=== PATIENT | male | born 1985 | race Caucasian/White ===

== ENCOUNTER 2019-02-12 11:44 | Emergency (ER) | payer SELFPAY ==
[~2019-02-12] VITALS: Ht 167.6 cm; Wt 65.8 kg
[2019-02-12 12:13] VITALS: BP 134/65
[2019-02-12 12:41] LABS: BILIRUBIN,URINE NEGATIVE (NEG); CLARITY,URINE CLEAR; COLOR,URINE YELLOW; NITRITE,URINE NEGATIVE (NEG); PH,URINE 6.5; PROTEIN,URINE NEGATIVE (NEG-TRACE)
[2019-02-12 12:48] LABS: BARBITURATES NEG (NEG); BENZODIAZEPINES NEG (NEG); CANNABINOIDS POS (NEG); COCAINE NEG (NEG); METHADONE NEG (NEG); OPIATES NEG (NEG); PHENCYCLIDINE NEG (NEG)
[2019-02-12 12:51] LABS: BACTERIA,URINE 0 /HPF (0-FEW)
[2019-02-12 12:54] LABS: AMPHETAMINE/METHAMPHETAMINE NEG (NEG)
--- NOTE | 2019-02-12 13:32 | PHYS DOC ---
Past Medical History Past Medical History: No Pertinent History Past Surgical History: No Surgical History Alcohol Use: None Drug Use: None Adult General Chief Complaint Chief Complaint: BACK PAIN - NO INJURY HPI HPI Patient is a 33 year old male who presents with left and right lower back pain with radiation down the back of the left leg that has been going on and off the last 2 months but states is getting sharper is hard for him to work. 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 He states the pain is worse when he is up and moving but he does have pain they rates 9 out of 10 just sitting in the chair. Denies loss of bowel or bladder. Denies taking any medications and denies injury. Review of Systems Review of Systems Musculoskeletal: Low back pain or joint pain [] All other systems were reviewed and found to be within normal limits, except as documented in this note. Allergies Allergies Allergies Coded Allergies Type Severity Reaction Last Updated Verified No Known Drug Allergies 02/12/19 No Physical Exam Physical Exam Constitutional: Well developed, well nourished, no acute distress, non-toxic appearance. [] HENT: Normocephalic, atraumatic, bilateral external ears normal, oropharynx moist, no oral exudates, nose normal. [] Eyes: PERRLA, EOMI, conjunctiva normal, no discharge. [] Neck: Normal range of motion, no tenderness, supple, no stridor. [] Cardiovascular:Heart rate regular rhythm, no murmur [] Lungs & Thorax: Bilateral breath sounds clear to auscultation [] Abdomen: Bowel sounds normal, soft, no tenderness, no masses, no pulsatile masses. [] Skin: Warm, dry, no erythema, no rash. [] Back: Left paraspinal tenderness, no CVA tenderness. [] Extremities: No tenderness, no cyanosis, no clubbing, ROM intact, no edema. [] Neurologic: Alert and oriented X 3, normal motor function, normal sensory function, no focal deficits noted. [] Psychologic: Affect normal, judgement normal, mood normal. [] Current Patient Data Vital Signs Vital Signs Date Time Temp Pulse Resp B/P (MAP) Pulse Ox O2 Delivery O2 Flow Rate FiO2 02/12/19 12:13 98.2 99 18 134/65 (88) 99 Room Air 98.2 Lab Values Laboratory Tests Test 02/12/19 12:35 Urine Collection Type Unknown Urine Color Yellow Urine Clarity Clear Urine pH 6.5 Urine Specific [place] 1.015 Urine Protein Negative mg/dL (NEG-TRACE) Urine Glucose (UA) Negative mg/dL (NEG) Urine Ketones (Stick) Negative mg/dL (NEG) Urine Blood Negative (NEG) Urine Nitrite Negative (NEG) Urine Bilirubin Negative (NEG) Urine Urobilinogen Dipstick 1.0 mg/dL (0.2 mg/dL) Urine Leukocyte Esterase Negative (NEG) Urine RBC 3-5 /HPF (0-2) Urine WBC 1-4 /HPF (0-4) Urine Bacteria 0 /HPF (0-FEW) Urine Mucus Marked /LPF Urine Opiates Screen Neg (NEG) Urine Methadone Screen Neg (NEG) Urine Barbiturates Neg (NEG) Urine Phencyclidine Screen Neg (NEG) Urine Amphetamine/Methamphetamine Neg (NEG) Urine Benzodiazepines Screen Neg (NEG) Urine Cocaine Screen Neg (NEG) Urine Cannabinoids Screen Pos (NEG) Urine Ethyl Alcohol Neg (NEG) EKG EKG [] Radiology/Procedures Radiology/Procedures [] Impressions: [facility] [address] [place] [address] IMAGING REPORT Signed PATIENT: JULIO CHEN ACCOUNT: [id number] : 1985 LOCATION: ER AGE: 33 SEX: M EXAM STATUS: REG ER ORD. PHYSICIAN: JANET KNIGHT APRN REASON: pain low back PROCEDURE: LUMBAR SPINE 2-3V Study: LUMBAR SPINE 2-3V Indication: Low back pain. Comparison: None. Findings: The last well-formed disc space is designated L5-S1. This would make the T12 vertebral body nonrib-bearing. Lumbar lordosis is maintained. No suspicious vertebral body height loss or disc space narrowing. Probable relatively mild lower lumbar facet degeneration. The adequately evaluated posterior elements are grossly intact. Partially visualized pelvic osseous structures are within normal limits. Impression: No acute fracture or advanced degenerative change. Electronically signed by: OWEN KEN MD (02/12/2019 1:33 PM) [facility] DICTATED and SIGNED BY: OWEN KEN MD DATE: 02/12/19 1333 Course & Med Decision Making Course & Med Decision Making Bruising or swelling to his back and a deformity to the spine. No spinal focal tenderness. Patient does have left-sided paraspinal tenderness with palpation. Patient moves all extremities without complications. Equal strength in liquor commissioner in all extremities. Denies any numbness or tingling or weakness of extremities. Alert and oriented. Ambulatory with a steady gait the patient walks slowly. Skin pink warm and dry. Denies dysuria or abdominal pain, nausea, vomiting, fevers, chest pain, shortness of air headache, dizziness, visual changes. Extremity swelling. X-ray shows no acute findings. This is likely musculoskeletal with sciatica. He will need to follow-up the primary care provider. Dragon Disclaimer Dragon Disclaimer This electronic medical record was generated, in whole or in part, using a voice recognition dictation system. Departure Departure Impression: Primary Impression: Low back pain Disposition: HOME, SELF-CARE Condition: STABLE Referrals: NO PCP (PCP) Patient Instructions: Back Pain, Adult Additional Instructions: Follow up with primary care provider. Drink plenty of fluids. Take medications as prescribed. Scripts Methylprednisolone (MEDROL) 4 Mg Tab.ds.pk 1 PKG PO UD, #1 PKG Prov: JANET KNIGHT APR02/12/19 Hydrocodone/Apap 5-325 (NORCO 5-325 TABLET) 1 Each Tablet 1 TAB PO PRN Q6HRS PRN for PAIN, #8 TAB 0 Refills Prov: JANET KNIGHT APRN 02/12/19 Ibuprofen (IBUPROFEN) 600 Mg Tablet 600 MG PO PRN Q6HRS PRN for INFLAMMATION, #20 TAB Prov: JANET KNIGHT APR02/12/19 Problem Qualifiers Primary Impression: Low back pain Chronicity: acute Back pain laterality: bilateral Sciatica presence: with sciatica Sciatica laterality: sciatica of left side Qualified Codes: M54.42 - Lumbago with sciatica, left side JANET KNIGHT APRN Feb 12, 2019 13:32
--- NOTE | 2019-02-12 13:37 | RAD ---
Study: LUMBAR SPINE 2-3V Indication: Low back pain. Comparison: None. Findings: The last well-formed disc space is designated L5-S1. This would make the T12 vertebral body nonrib-bearing. Lumbar lordosis is maintained. No suspicious vertebral body height loss or disc space narrowing. Probable relatively mild lower lumbar facet degeneration. The adequately evaluated posterior elements are grossly intact. Partially visualized pelvic osseous structures are within normal limits. Impression: No acute fracture or advanced degenerative change. Electronically signed by: OWEN KNE MD (02/12/2019 1:33 PM) [facility]
[2019-02-12] MEDS ORDERED: METH4TAB2 PO (13:56)
[2019-02-12] MEDS ORDERED: IBUP-1007 PO (13:56)
[2019-02-12] MEDS ORDERED: HYDR-3164 PO (13:56)
== END 2019-02-12 14:03 | disposition home or self-care (01) ==
LOC: ER 11:44
DX: M54.42 Lumbago with sciatica, left side (principal); R00.2 Palpitations
CPT/HCPCS: 72100; 80307; 81001; 99285

== ENCOUNTER 2020-06-21 15:08 | Emergency (ER) | payer BC ==
[~2020-06-21] VITALS: Ht 167.6 cm; Wt 70.4 kg
[~2020-06-21 15:08] MED LIST: HYDR-3164 PO; IBUP-1007 PO; METH4TAB2 PO
--- NOTE | 2020-06-21 16:42 | RAD ---
Exam: Lumbar spine 2 views INDICATION: Back pain TECHNIQUE: Frontal and lateral views lumbar spine, with spot magnification view of the lumbosacral ju nction Comparisons: 02/12/2019 FINDINGS: Vertebral body heights and alignment are well-maintained. Mild multilevel spondylotic change in the lumbar spine with degenerative facet arthropathy throughout the lumbar spine. Visualized paraspinal soft tissues are unremarkable. IMPRESSION: Mild spondylotic changes lumbar spine as described above. Electronically signed by: Jarret Patiño MD (06/21/2020 4:40 PM) [facility]
[2020-06-21 16:52] VITALS: BP 122/70
[2020-06-21] MEDS ORDERED: CYCL10TA2 PO (17:06)
[2020-06-21] MEDS ORDERED: METH4TAB2 PO (17:06)
[2020-06-21] MEDS ORDERED: DICL50TA2 PO (17:06)
--- NOTE | 2020-06-21 17:07 | PHYS DOC ---
Past Medical History Past Medical History: Other Additional Past Medical Histor: CHRONIC BACK PAIN Past Surgical History: No Surgical History Smoking Status: Current Every Day Smoker Alcohol Use: Occasionally Drug Use: None General Adult EDM: Chief Complaint: BACK PAIN - NO INJURY HPI: HPI: Patient is a 35 year old female who presents to the ED today complaining of 7 out of 10 throbbing low back pain, symptoms have been going on for 2 years, after he got injured at [employer] where he twisted wrong and developed back pain. He states the pain has been constant in the last 2 days. Denies any injuries this round. Denies any loss of bowel/bladder function. States the pain is worse on movements. Patient is requesting imaging and blood work to make sure there is nothing wrong with his back Review of Systems: Review of Systems: Constitutional: Denies fever or chills. [] GI: Denies abdominal pain, nausea, vomiting, bloody stools or diarrhea. [] : Denies dysuria. [] Musculoskeletal: Reports low back pain. Integument: Denies rash. [] Neurologic: Denies headache, focal weakness or sensory changes. [] Psychiatric: Denies depression or anxiety. [] Heart Score: C/O Chest Pain: N/A Risk Factors: Risk Factors: DM, Current or recent (<one month) smoker, HTN, HLP, family history of CAD, obesity. Risk Scores: Score 0 - 3: 2.5% MACE over next 6 weeks - Discharge Home Score 4 - 6: 20.3% MACE over next 6 weeks - Admit for Clinical Observation Score 7 - 10: 72.7% MACE over next 6 weeks - Early Invasive Strategies Allergies: Allergies: Allergies Coded Allergies Type Severity Reaction Last Updated Verified No Known Drug Allergies 02/12/19 No Physical Exam: PE: Constitutional: Well developed, well nourished, no acute distress, non-toxic appearance. [] Abdomen: Bowel sounds normal, soft, no tenderness, no masses, no pulsatile masses. [] Skin: Warm, dry, no erythema, no rash. [] Back: No tenderness, no CVA tenderness. [] Extremities: No tenderness, no cyanosis, no clubbing, ROM intact, no edema. [] Neurologic: Alert and oriented X 3, normal motor function, normal sensory fu nction, no focal deficits noted. [] Psychologic: Affect normal, judgement normal, mood normal. [] Current Patient Data: Vital Signs: Vital Signs Date Time Temp Pulse Resp B/P (MAP) Pulse Ox O2 Delivery O2 Flow Rate FiO2 06/21/20 15:13 98.7 106 17 144/89 (107) 98 Room Air 98.7 EKG: EKG: [] Radiology/Procedures: Radiology/Procedures: []PROCEDURE: LUMBAR SPINE 2-3V Exam: Lumbar spine 2 views INDICATION: Back pain TECHNIQUE: Frontal and lateral views lumbar spine, with spot magnification view of the lumbosacral junction Comparisons: 02/12/2019 FINDINGS: Vertebral body heights and alignment are well-maintained. Mild multilevel spondylotic change in the lumbar spine with degenerative facet arthropathy throughout the lumbar spine. Visualized paraspinal soft tissues are unremarkable. IMPRESSION: Mild spondylotic changes lumbar spine as described above. Electronically signed by: Jarret Faulkner MD (06/21/2020 4:40 PM) [facility] DICTATED and SIGNED BY: JARRET FALUKNER MD DATE: 06/21/20 [id number] 0 Course & Med Decision Making: Course & Med Decision Making Pertinent Labs and Imaging studies reviewed. (See chart for details) This is a 35-year-old male patient presented to the ED today with low back pain, symptoms have been going on for 2 years after twisting wrong at [employer]. Patient is requesting imaging and lab work. Informed there is no benefit for any of these studies considering he has no injury. X-rays of the lumbar spine were DJD/spondylosis otherwise no acute findings. Patient was discharged to home. Follow-up with PCP in 1 week Deysi Disclaimer: Deysi Disclaimer: This electronic medical record was generated, in whole or in part, using a voice recognition dictation system. Departure Departure Impression: Primary Impression: Degenerative joint disease (DJD) of lumbar spine Qualified Codes: M47.816 - Spondylosis without myelopathy or radiculopathy, lumbar region Additional Impression: Low back pain Qualified Codes: M54.5 - Low back pain Disposition: 01 HOME / SELF CARE / HOMELESS Condition: STABLE Referrals: NO PCP (PCP) LENORE HARDY MD follow up in 1-2 weeks Patient Instructions: Arthritis, Degenerative-Brief, Back Pain, Adult Additional Instructions: You were evaluated in the emergency room for low back pain, you were noted to have arthritis in your back on xrays otherwise no acute findings. Please follow-up with your primary care doctor or the pain clinic doctor provided. Take the prescribed medications as ordered Scripts Diclofenac Potassium (DICLOFENAC POTASSIUM) 50 Mg Tablet 1 TAB PO BID, #20 TAB 0 Refills Prov: MITZI MCGHEE APRN 06/21/20 Cyclobenzaprine Hcl (CYCLOBENZAPRINE HCL) 10 Mg Tablet 1 TAB PO TID, #30 TAB Prov: MITZI MCGHEE APRN 06/21/20 Methylprednisolone (MEDROL) 4 Mg Tab.ds.pk 1 PKG PO UD, #1 PKG Prov: MITZI MCGHEE APRN 06/21/20 MITZI MCGHEE APRN Jun 21, 2020 17:06
== END 2020-06-21 16:54 | disposition home or self-care (01) ==
LOC: ER 15:08
DX: M47.816 Spondylosis without myelopathy or radiculopathy, lumbar region (principal); M54.5 Low back pain; F17.200 Nicotine dependence, unspecified, uncomplicated; G89.29 Other chronic pain
CPT/HCPCS: 72100; 99283